=== PATIENT | male | born 1990 | race Hispanic/Latino ===

== ENCOUNTER 2022-06-07 16:51 | Emergency (ER) | payer BC, SELFPAY ==
[2022-06-07] MEDS ORDERED: Boostrix 0.5 ML (Tdap) VIAL (>/=7 yrs of age) ONE (17:56)
== END 2022-06-07 17:54 | disposition home or self-care (01) ==
LOC: ERS 16:51
DX: S50.11XA Contusion of right forearm, initial encounter (principal); Z23 Encounter for immunization; W20.8XXA Other cause of strike by thrown, projected or falling object, initial encounter; Y92.009 Unspecified place in unspecified non-institutional (private) residence as the place of occurrence of the external cause
CPT/HCPCS: 90471; 90715